=== PATIENT | male | born 1955 | race Two or more races ===

== ENCOUNTER 2018-11-11 05:30 | Day surgery (SDC) | payer MEDICARE, MEDICAID ==
[~2018-11-11] VITALS: Ht 162.6 cm; Wt 80.5 kg
[~2018-11-11 05:30] MED LIST: ALBU8.5H8 IH; AMOX250T PO; DICL75TA5 PO; FLUT16H NASAL; MOME13HF IH; MONT10TA24 PO; OMEP20TA25 PO; PRED10TA3 PO; TIOT185 IH
[2018-11-11] MEDS ORDERED: BENZOCAINE 20% 50 MCG/SPRAY 57 GM TP ONE (05:31)
[2018-11-11] MEDS ORDERED: EPINEPHrine 1:1,000 [1 MG/ML] AMP IM ONE (05:31)
[2018-11-11] MEDS ORDERED: LIDOCAINE 4% 50 ML SOLUTION TP ONE (05:31)
[2018-11-11] MEDS ORDERED: ALBUTEROL SULFATE 2.5 MG/0.5 ML NEB SOLUTION NEB ONE (05:31)
[2018-11-11] MEDS ORDERED: LIDOCAINE 2% 30 ML JELLY TP ONE (05:31)
[2018-11-11] MEDS ORDERED: SODIUM CHLORIDE 0.9% 1,000 ML IV ONE (05:53)
[2018-11-11] MEDS: SODIUM CHLORIDE 0.9% 1,000 ML IV ONE (07:10)
[2018-11-11] MEDS ORDERED: RANI150T7 PO (07:22)
[2018-11-11] MEDS ORDERED: TAMS-1 PO (07:22)
[2018-11-11] MEDS ORDERED: LISI1TAB11 PO (07:22)
[2018-11-11] MEDS ORDERED: AMOX1TAB16 PO (07:22)
[2018-11-11] MEDS ORDERED: FentaNYL CITRATE-PF 100 MCG/2 ML VIAL ONE (08:11)
[2018-11-11] MEDS ORDERED: MIDAZOLAM HCL 2 MG/2 ML VIAL ONE (08:11)
[2018-11-11] MEDS ORDERED: MethylPREDNISolone SOD SUCC 125 MG/2 ML VIAL ONE (08:51)
[2018-11-11] MEDS: MethylPREDNISolone SOD SUCC 125 MG/2 ML VIAL IVP ONE (08:53)
[2018-11-11] MEDS ORDERED: OXYGEN THERAPY IH SCH (20:00)
== END 2018-11-11 11:25 | disposition home or self-care (01) ==
LOC: SURGERY 05:30
PROVIDERS: ATTEND Internal Medicine Critical Care Medicine
DX: J38.4 Edema of larynx (principal); B37.0 Candidal stomatitis; Z98.890 Other specified postprocedural states; Z93.0 Tracheostomy status
CPT/HCPCS: 31623; 31624; 71045; 87015; 87070; 87101; 87205; 87206; 87220; J0171; J2250; J2930; J3010; J7030